=== PATIENT | female | born 1975 | race Caucasian/White ===

== ENCOUNTER 2016-03-08 14:15 | Emergency (ER) | payer OTHER ==
[~2016-03-08] VITALS: Wt 79.0 kg
[2016-03-08] MEDS ORDERED: BELLADONNA/PHENOBARBITAL TAB PO STA (15:06)
[2016-03-08] MEDS ORDERED: FAMOTIDINE 20 MG INJ IV STA (15:06)
[2016-03-08] MEDS ORDERED: LIDOCAINE/MYLANTA 40 ML BTL PO STA (15:06)
--- NOTE | 2016-03-08 15:10 | ERD ---
ER Documentation Chief Complaint Date/Time DATE: 03/08/16 TIME: 15:08 Chief Complaint ABD PAIN X2 DAYS, NO N/V/D HPI This is a 40-year-old female presents to the ER with epigastric pain that started yesterday. Epigastric pain is burning in quality it is nonradiating. It has been constant since yesterday. Patient has had several episodes of this in the past. Patient denies nausea vomiting or diarrhea. She denies any fevers or chills. ROS 12 point review of systems was done, all negative except per HPI. Allergies Allergies: Coded Allergies: No Known Allergy (Unverified , 03/08/16) PMhx/Soc Medical and Surgical Hx: pt denies Medical Hx, pt denies Surgical Hx Hx Alcohol Use: No Hx Substance Use: No Hx Tobacco Use: No Smoking Status: Never smoker Physical Exam Vitals Vital Signs Date Time Temp Pulse Resp B/P Pulse Ox O2 Delivery O2 Flow Rate FiO2 03/08/16 14:30 97.2 91 18 139/91 98 Physical Exam GENERAL: The patient is well developed and appropriate for usual state of health , in no apparent distress. HEENT: Atraumatic. CHEST: Clear to auscultation bilaterally. There are no rales, wheezes or rhonchi. HEART: Regular rate and rhythm. No murmurs, clicks, rubs or gallops. ABDOMEN: Soft, nontender and nondistended. Good bowel sounds. No rebound or guarding. No gross peritonitis. No gross organomegaly or masses. No Gomez sign or McBurney point tenderness. NEURO: Alert and oriented. SKIN: \The skin is warm and dry. Result Diagram: 03/08/16 1730 03/08/16 1730 Results 24 hrs Laboratory Tests Test 03/08/16 15:11 03/08/16 17:30 Urine Bacteria MANY Urine Bilirubin NEGATIVE Urine Clarity CLEAR Urine Color LT. YELLOW Urine Epithelial Cells FEW Urine Glucose NEGATIVE% Urine Hemoglobin TRACE Urine Ketones TRACE Urine Leukocyte Esterase TRACE Urine Microscopic RBC 2-5/HPF Urine Microscopic WBC 5-10/HPF Urine Nitrite NEGATIVE Urine Specific [place] >=1.030 Urine Total Protein TRACE Urine Urobilinogen 0.2 E.U./dL Urine pH 7.0 Alanine Aminotransferase (ALT/SGPT) 24IU/L Albumin 3.9g/dl Albumin/Globulin Ratio 1.11 Alkaline Phosphatase 87IU/L Anion Gap 15 Aspartate Amino Transf (AST/SGOT) 25IU/L Basophils # 0.010^3/ul Basophils % 0.2% Blood Morphology Comment Blood Urea Nitrogen 6mg/dl Calcium Level 9.1mg/dl Carbon Dioxide Level 27mmol/L Chloride Level 105mmol/L Creatinine 0.68mg/dl Direct Bilirubin 0.00mg/dl Eosinophils # 0.110^3/ul Eosinophils % 0.8% Globulin 3.50g/dl Glucose Level 92mg/dl Hematocrit 37.9% Hemoglobin 12.0g/dl Indirect Bilirubin 0.2mg/dl Lipase 1609U/L Lymphocytes # 1.510^3/ul Lymphocytes % 8.0% Mean Corpuscular Hemoglobin 26.1pg Mean Corpuscular Hemoglobin Concent 31.7g/dl Mean Corpuscular Volume 82.5fl Mean Platelet Volume 8.5fl Monocytes # 1.110^3/ul Monocytes % 5.9% Neutrophils # 15.810^3/ul Neutrophils % 85.1% Nucleated Red Blood Cells # 0.010^3/ul Nucleated Red Blood Cells % 0.0/100WBC Platelet Count 46567^3/UL Potassium Level 3.9mmol/L Red Blood Count 4.5910^6/ul Red Cell Distribution Width 17.3% Sodium Level 143mmol/L Total Bilirubin 0.2mg/dl Total Protein 7.4g/dl White Blood Count 18.510^3/ul Current Medications Medications (Trade) Dose Ordered Sig/Fany Route PRN Reason Start Time Stop Time Status Last Admin Dose Admin Famotidine (Pepcid Iv) 20 mg ONCE STAT IV 03/08/16 15:06 03/08/16 15:07 DC 03/08/16 15:18 Miscellaneous Medication (Gi Cocktail (2)) 40 ml ONCE STAT PO 03/08/16 15:06 03/08/16 15:07 DC 03/08/16 15:18 Belladonna/ Phenobarbital () 2 tab ONCE STAT PO 03/08/16 15:06 03/08/16 15:07 DC 03/08/16 15:18 Oxycodone/ Acetaminophen (Endocet (10/ 325)) 1 tab ONCE ONCE PO 03/08/16 16:30 03/08/16 16:30 DC Famotidine (Pepcid) 20 mg ONCE ONCE PO 03/08/16 16:30 03/08/16 16:33 DC 03/08/16 16:28 Acetaminophen/ Hydrocodone Bitart (Ferron ()) 1 tab ONCE ONCE PO 03/08/16 16:30 03/08/16 16:33 DC 03/08/16 16:35 Procedures/MDM Differential Diagnosis: GERD, gastritis, peptic ulcer disease, pancreatitis, cholecystitis, choledocholithiasis, biliary colic, cholangitis, [id number] , ACS/ND, Pnuemonia. Patient does have gallstones and her lipase is significantly elevated. Patient has pancreatitis secondary to cholelithiasis. Patient will be transferred over to ER 1 for further management and care. Departure Diagnosis: Primary Impression: Abdominal pain Additional Impression: Pancreatitis Condition: Stable BUNNY BRITTON Mar 08, 2016 15:10
[2016-03-08 15:44] LABS: ADD UMIC YES; URINE BILIRUBIN (Dip) NEGATIVE (NEGATIVE); URINE BLOOD (Dip) TRACE (NEGATIVE); URINE COLOR LT. YELLOW (YELLOW); URINE GLUCOSE (Dip) NEGATIVE (NEGATIVE); URINE KETONES (Dip) TRACE (NEGATIVE); URINE LEUKOCYTE ESTERASE (Dip) TRACE (NEGATIVE); URINE NITRITE (Dip) NEGATIVE (NEGATIVE); URINE TOTAL PROTEIN (Dip) TRACE (NEGATIVE); URINE UROBILINOGEN (Dip) 0.2 E.U./dL (0.1-1.0)
[2016-03-08 15:53] LABS: BACTERIA,URINE MANY
--- NOTE | 2016-03-08 16:01 | RADRPT ---
PROCEDURE: Abdominal ultrasound CLINICAL INDICATION: Abdominal pain TECHNIQUE: Starkey scale, color Doppler, and spectral Doppler ultrasound images of the right upper qu adrant. COMPARISON: None FINDINGS: Pancreas: Visualized portions appear of normal echogenicity, no focal lesions. Liver: Morphology: Normal in size and contour. Echogenicity: Normal. Focal lesions: None. Main portal vein: Patent with hepatopetal flow. Biliary System: Normal appearing gallbladder wall. No gallstones seen. No intra or extra-hepatic biliary dilatation. Common bile duct measures 6.0 mm in maximal dimension. Kidneys: Right 10.1 cm in length. Normal echogenicity. No hydronephrosis. No focal lesions or renal calculi. No free fluid identified. IMPRESSION: Cholelithiasis without evidence of abnormal gallbladder wall thickening to suggest cholecystitis. Normal caliber of the intrahepatic and extrahepatic biliary system. RPTAT: AADD .Jay Ahn MD, MD Date Time Electronically viewed and signed by .Jay Ahn MD, on 03/08/2016 16:01 .B/
[2016-03-08] MEDS ORDERED: HYDROCODONE/APAP (10/325) TAB PO ONE (16:30)
[2016-03-08] MEDS ORDERED: FAMOTIDINE 20 MG TAB PO ONE (16:30)
[2016-03-08] MEDS ORDERED: OXYCODONE/ACETAMINOPHEN (10/325) TAB PO ONE (16:30)
[2016-03-08 17:45] LABS: BASOPHILS % 0.2 % (0.0-2.0); EOSINOPHILS # 0.1 10^3/ul (0.0-0.5); EOSINOPHILS % 0.8 % (0.0-7.0); HEMATOCRIT 37.9 % (37.0-47.0); LYMPHOCYTES # 1.5 10^3/ul (0.8-2.9); MEAN CORPUSCULAR HEMOGLOBIN 26.1 pg (29.0-33.0); MEAN CORPUSCULAR HGB CONC 31.7 g/dl (32.0-37.0); MEAN CORPUSCULAR VOLUME 82.5 fl (82.0-101.0); MEAN PLATELET VOLUME 8.5 fl (7.4-10.4); MONOCYTE # 1.1 10^3/ul (0.3-0.9); MONOCYTES % 5.9 % (0.0-11.0); NEUTROPHIL # 15.8 10^3/ul (1.6-7.5); NEUTROPHILS % 85.1 % (39.0-77.0); PLATELET COUNT 372 10^3/UL (140-440); RED BLOOD COUNT 4.59 10^6/ul (4.20-5.40); RED CELL DISTRIBUTION WIDTH 17.3 % (11.5-14.5); UNCORRECTED WBC 18.5 10^3/ul (4.8-10.8); WHITE BLOOD COUNT 18.5 10^3/ul (4.8-10.8)
[2016-03-08 17:46] LABS: CONDITION 1; LH ANALYZER COMMENTS 1
[2016-03-08 17:56] LABS: ALBUMIN 3.9 g/dl (3.3-4.9)
[2016-03-08 17:57] LABS: POTASSIUM 3.9 mmol/L (3.5-5.1)
[2016-03-08 17:59] LABS: ALBUMIN/GLOBULIN RATIO 1.11; BILIRUBIN,INDIRECT 0.2 mg/dl (0-1.1); BILIRUBIN,TOTAL 0.2 mg/dl (0.2-1.3); CREATININE 0.68 mg/dl (0.44-1.00); TOTAL PROTEIN 7.4 g/dl (6.1-8.1)
[2016-03-08 18:00] LABS: CALCIUM 9.1 mg/dl (8.4-10.2)
[2016-03-08] MEDS ORDERED: PIPER-TAZO 3.375 GM IV (PMX) 100 ML IVPB ONE (18:30)
[2016-03-08] MEDS ORDERED: LIDOCAINE 1% (MDV) 20 ML INJ SC ONE (18:30)
[2016-03-08] MEDS ORDERED: SOD CHLORIDE 0.9% 1,000 ML IV ONE (18:30)
--- NOTE | 2016-03-08 18:56 | EN ---
Date/Time of Note Date/Time of Note DATE: 03/08/16 TIME: 18:53 ER Progress Note HPI: 40-year-old woman with 1 day of epigastric pain, nausea, and tactile fevers. She denies vomiting or diarrhea, no recent antibiotic use or recent travel. Workup today revealed cholelithiasis on ultrasound and lipase was severely elevated. Past medical history: None Physical exam: GENERAL: Well-developed, well-nourished, mild discomfort HEENT: Moist mucous membranes, pink conjunctiva, no cervical spine tenderness or step-off deformities, no goiter, no jaundice or icterus, extraocular movements intact without pain. No submandibular induration, and no pharyngeal erythema NEURO: Alert and oriented 3, cranial nerves II through XII intact bilaterally, pupils equal round reactive to light, no focal deficits or facial asymmetry, sensation intact distally Strength 5/5 in upper and lower extremities bilaterally CARDIAC: Regular rate and rhythm, no murmurs rubs or gallops LUNGS: Clear bilaterally no wheezing crackles or stridor ABDOMEN: Epigastric tenderness to touch with voluntary guarding, no rebound, no psoas sign no obturator sign. Normoactive bowel sounds SKIN: Warm and dry to touch, no abrasions, contusions, or hematomas, no lacerations, no ecchymosis, no target lesions, and without ulcers EXTREMITIES: No clubbing cyanosis or edema, calves are bilaterally symmetrical, no Homans sign, no popliteal cord sign. Distal pulses equal and bilateral PSYCH: Normal affect without agitation or irritability Medical decision making: We established small IV line and for further IV access I ordered PICC line placement. Labs reveal leukocytosis and lipase over 1800, and in the setting of cholelithiasis I suspect acute gallstone pancreatitis. I ordered IV fluids and opioid analgesics as well as Zosyn 3.375 g IV. Patient will be transferred to [facility] which is where her insurance is capitated to. Diagnostic impression: #1 acute gallstone pancreatitis MONICA MCLEAN MD Mar 08, 2016 18:56
== END 2016-03-08 19:52 | disposition left against medical advice (07) ==
LOC: FTE 14:15 → E/R 19:52
DX: R10.13 Epigastric pain (principal); K85.90 Acute pancreatitis without necrosis or infection, unspecified
CPT/HCPCS: 36415; 76705; 80053; 81001; 83690; 85025; 96374; J7030; Z7502; Z7610; 81003

== ENCOUNTER 2018-07-13 16:23 | Emergency (ER) | payer OTHER ==
[~2018-07-13] VITALS: Ht 167.6 cm; Wt 67.9 kg
[2018-07-13 16:30] VITALS: Ht 167.6 cm; Wt 67.9 kg
--- NOTE | 2018-07-13 17:08 | ERD ---
ER Documentation Chief Complaint Chief Complaint BILATERAL FLANK PAIN. DENIES DYSURIA. HPI 43-year-old female with history of meth use presents with complaint of bilateral flank pain on and off for the past month. States that the bilateral flank pain is been worse last 3 days. States that she occasionally takes meth, last intake was 2 days ago. Denies any dysuria, hematuria, brown-colored urine, fevers, chills. Denies any medical history including high blood pressure. Denies allergies. ROS All systems reviewed and are negative except as per history of present illness. Medications Home Meds Active Scripts Azithromycin* (Zithromax*) 250 Mg Tablet, 250 MG PO .ZPACK DIRECTED, #6 TAB TAKE 500 MG (2 TABS) THE FIRST DAY THEN 250 MG (1 TAB) DAYS 2-5 Prov:YASMIN PIPER 07/13/18 Allergies Allergies: Coded Allergies: No Known Allergy (Unverified , 03/08/16) PMhx/Soc Hx Alcohol Use: No Hx Substance Use: No Hx Tobacco Use: No FmHx Family History: No diabetes, No coronary disease, No other Physical Exam Vitals Vital Signs Date Temp Pulse Resp B/P (MAP) Pulse Ox O2 O2 Flow FiO2 Time Delivery Rate 07/13/18 97.5 97 16 132/66 100 16:30 (88) Physical Exam Const: No acute distress Head: Atraumatic Eyes: Normal Conjunctiva ENT: Normal External Ears, Nose and Mouth. Neck: Full range of motion. No meningismus. Resp: Clear to auscultation bilaterally Cardio: Regular rate and rhythm, no murmurs Abd: Soft, non tender, non distended. Normal bowel sounds Skin: No petechiae or rashes Back: No midline or flank tenderness Ext: No cyanosis, or edema Neur: Awake and alert Psych: Normal Mood and Affect Result Diagram: 07/13/18 1712 07/13/18 1712 Results 24 hrs Laboratory Tests Test 07/13/18 17:12 White Blood Count 14.7 10^3/ul Red Blood Count 5.04 10^6/ul Hemoglobin 12.8 g/dl Hematocrit 41.2 % Mean Corpuscular Volume 81.7 fl Mean Corpuscular Hemoglobin 25.4 pg Mean Corpuscular Hemoglobin Concent 31.1 g/dl Red Cell Distribution Width 17.5 % Platelet Count 393 10^3/UL Mean Platelet Volume 10.2 fl Immature Granulocytes % 0.400 % Neutrophils % 80.2 % Lymphocytes % 10.0 % Monocytes % 7.3 % Eosinophils % 1.8 % Basophils % 0.3 % Nucleated Red Blood Cells % 0.0 /100WBC Immature Granulocytes # 0.060 10^3/ul Neutrophils # 11.8 10^3/ul Lymphocytes # 1.5 10^3/ul Monocytes # 1.1 10^3/ul Eosinophils # 0.3 10^3/ul Basophils # 0.1 10^3/ul Nucleated Red Blood Cells # 0.0 10^3/ul Urine Color YELLOW Urine Clarity SLIGHTLY CLOUDY Urine pH 5.0 Urine Specific [place] 1.015 Urine Ketones 1+ mg/dL Urine Nitrite NEGATIVE mg/dL Urine Bilirubin NEGATIVE mg/dL Urine Urobilinogen NEGATIVE mg/dL Urine Leukocyte Esterase NEGATIVE [place]/ul Urine Microscopic RBC 6 /HPF Urine Microscopic WBC 3 /HPF Urine Squamous Epithelial Cells MODERATE /HPF Urine Bacteria FEW /HPF Urine Mucus MODERATE /HPF Urine Hemoglobin 1+ mg/dL Urine Glucose NEGATIVE mg/dL Urine Total Protein NEGATIVE mg/dl Urine Test NEGATIVE Sodium Level 142 mmol/L Potassium Level 3.8 mmol/L Chloride Level 105 mmol/L Carbon Dioxide Level 25 mmol/L Anion Gap 12 Blood Urea Nitrogen 6 mg/dl Creatinine 0.65 mg/dl Est Glomerular Filtrat Rate mL/min > 60 mL/min Glucose Level 100 mg/dl Calcium Level 9.4 mg/dl Total Bilirubin 0.3 mg/dl Direct Bilirubin 0.00 mg/dl Indirect Bilirubin 0.3 mg/dl Aspartate Amino Transf (AST/SGOT) 25 IU/L Alanine Aminotransferase (ALT/SGPT) 17 IU/L Alkaline Phosphatase 92 IU/L Creatine Kinase 118 IU/L Total Protein 8.4 g/dl Albumin 4.6 g/dl Globulin 3.80 g/dl Albumin/Globulin Ratio 1.21 Lipase 669 U/L Current Medications Medications Dose Sig/Fany Start Time Status Last (Trade) Ordered Route PRN Stop Time Admin Dose Reason Admin Sodium 1,000 ml @ Q1H STAT 07/13/18 DC 07/13/18 Chloride 1,000 mls/hr IV 21:04 21:49 07/13/18 22:03 IV Flush 10 ml STK-MED 07/13/18 DC 07/13/18 (NS 10 ml) ONCE .ROUTE 22: 22:40 07/13/18 22:22 Sodium 100 ml @ ud STK-MED 07/13/18 DC 07/13/18 Chloride ONCE .ROUTE : 22:41 07/13/18 22:22 Iohexol 150 ml STK-MED 07/13/18 DC 07/13/18 (Omnipaque ONCE .ROUTE 22: 22:41 300mg/ ml) 07/13/18 22:22 Iodixanol 100 ml STK-MED 07/13/18 DC (Visipaque ONCE .ROUTE 22:25 Locm) 07/13/18 22:26 Procedures/MDM DIAGNOSTIC IMAGING REPORT Patient: LILO POTTER : 1975 Age: 43 Sex: F MR #: [id number] DOS: 07/13/182056 Ordering MD: YASMIN PIPER Location: [facility] Room/Bed: PROCEDURE: US Abdomen Limited. CLINICAL INDICATION: Abdominal pain. TECHNIQUE: Multiple perez scale, color flow and Doppler ultrasound images were acquired of the patient's abdomen and retroperitoneum utilizing a high resolution transducer. COMPARISON: US ABDOMEN 03/08/2016 FINDINGS: Liver: Size: Normal. Echotexture: Normal. Lesions: None. Biliary: Gallbladder: Filled with a small to moderate amount of bile. Gallbladder wall: Normal. Common bile duct: Not well visualized. Pericholecystic fluid: None. Gallstones: Few echogenic, shadowing stones. The largest measuring up to 8 mm. Sludge: Small amount. Masses: None. Pancreas: Proximal portions: Not well visualized. Distal portions: Not well visualized. Right Kidney: Size: Normal. Echogenicity: Normal. Cysts: None. Hydronephrosis: None. Stones: None. Lesions: None Vascular: Portal vein: Antegrade flow. Other: Ascites: None. Pleural effusion: None visualized. Sonographic Gomez's Sign: Negative. IMPRESSION: Cholelithiasis. Common bile duct and pancreas not well visualized. If characterization of these structures is needed repeat exam or CT/MRI is recommended. RPTAT: AA .Richard Alvarado MD, Date Time Electronically viewed and signed by .Richard Alvarado MD, MD on 07/13/2018 22:03 .P/ CC: YASMIN PIPER [phone] DIAGNOSTIC IMAGING REPORT Patient: LILO POTTER : 1975 Age: 43 Sex: F MR #: [id number] DOS: 07/13/18 0000 Ordering MD: YASMIN PIPER Location: [facility] Room/Bed: PROCEDURE: CT Abdomen and pelvis with contrast. CLINICAL INDICATION: 43 year-old female flank pain, abdominal pain, h/o meth use, white count TECHNIQUE: Routine abdominopelvic CT following the administration of intravenous contrast. Coronal and sagittal reformats were provided. DICOM images are available. Contrast dose: 98 cc of Visipaque. Oral contrast was not administered. Radiation dose: CTDI (mGy): 8.44 mGy and DLP(mGy-cm): 461.87 mGy.cm One or more of the following dose reduction techniques were used: - Automated exposure control. - Adjustment of the mA and/or kV according to patient size. - Use of iterative reconstruction technique. COMPARISON: US ABDOMEN 07/13/2018. FINDINGS: Lower Thorax: Tree in bud nodules are identified and scattered throughout the visualized lung bases including the right lower lobe, lingula and right middle lobe. Mucous plugging is identified in the distal airways such as the dependent lower lobes. Liver: The liver is normal in overall morphology and enhancement. There is fo jovan low attenuation adjacent to the ligamentum teres in hepatic segment 4B. Biliary/gallbladder: Normal CT appearance of the gallbladder without calcified gallstones. No evidence of intra or extrahepatic biliary duct dilatation. Pancreas: Overall normal morphology and attenuation. No evidence of pe ripancreatic fluid or stranding. Stomach/Duodenum: The stomach is mostly collapsed, but grossly unremarkable. Spleen: Normal in size and morphology without focal lesion. Adrenals: No adrenal masses identified. Kidneys: Overall symmetric shape, size, and attenuation. A cortically based cyst is identified in the left upper pole of the kidney. Nonobstructing calculi are identified in the left mid kidney and lower pole. No evidence of obstructing urolithiasis or hydroureteronephrosis. Retroperitoneum: No evidence of aortic aneurysm. No evidence of retroperitoneal hemorrhage. Mesentery/Peritoneum: No evidence of free fluid or air. No mesenteric adenopathy identified. Hollow viscera:Allowing for variable degrees of distension, the CT appearance of the bowel loops are unremarkable. Appendix is normal. There is formed stool within the colonic loops. Pelvis/Reproductive organs: Asymmetric left adnexal cystic structure measuring 32 X 31 mm is identified. There is mild free fluid in the cul-de-sac. Musculoskeletal: There is transitional vertebra with sacralization of the transverse processes ankylosed to the adjacent sacral ala bilaterally. No osseous destructive lesions identified. IMPRESSION: Scattered tree in bud nodules and mucus plugging in the visualized lung bases including the lower lobes, lingula and right middle lobe. Findings are most indicative of airway infection or aspiration. Focal hepatosteatosis. Left nephrolithiasis. Normal appendix. Asymmetric left adnexal cystic structure measuring up to 32 mm. Dedicated pelvic ultrasound is recommended for better characterization. Mild free fluid in the cul-de-sac. Transitional vertebra with sacralized transverse processes and pseudarthrosis with the sacral alae bilaterally. Clinical correlation for Bertolotti's syndrome is recommended. RPTAT: EE Physician Mann Date Time Electronically viewed and signed by Physician Mann on 07/13/2018 23:22 BP/ CC: YASMIN PIPER [phone] MDM: Given patient's complaint of flank pain along with a history of recent meth use there is some concern for possible rhabdomyolysis however this dwas not indicated on the blood work or urinalysis. CT with contrast was ordered due to patient's history as well as white count and elevated lipase and the fact that the norm normal gallbladder ultrasound did not explain the findings on exam or labs. CT did show infection of the lungs the patient will be treated for pneumonia with azithromycin. I discussed the elevated lipase with my supervising physician and he said that unless it is 3 times elevated there is no concern for acute pancreatitis. I have low suspicion for rhabdomyolysis, pyelonephritis, intra-abdominal abscess, appendicitis, cholecystitis, or any other emergent condition. Patient discharged with strict ER precautions. Patient advised to follow up with PMD. All questions answered at discharge. Departure Diagnosis: Primary Impression: Flank pain Additional Impression: Pneumonia Pneumonia type: due to unspecified organism Laterality: unspecified laterality Lung location: unspecified part of lung Qualified Codes: J18.9 - Pneumonia, unspecified organism Condition: Stable YASMIN PIPER July 13, 2018 17:08
[2018-07-13] MEDS ORDERED: SOD CHLORIDE 0.9% 1,000 ML IV STA (21:04)
[2018-07-13] MEDS ORDERED: IOHEXOL 300MG/ML 150 ML BTL ONE (22:21)
[2018-07-13] MEDS ORDERED: SOD CHLORIDE 0.9% 100 ML ONE (22:21)
[2018-07-13] MEDS ORDERED: IODIXANOL LOCM 100 ML BTL ONE (22:25)
[2018-07-13] MEDS ORDERED: AZIT250T PO (23:38)
[2018-07-13 23:59] VITALS: BP 120/85; PULSE 88; RESP 20
== END 2018-07-14 | disposition home or self-care (01) ==
LOC: FTE 16:23
DX: R10.9 Unspecified abdominal pain (principal); J18.9 Pneumonia, unspecified organism
CPT/HCPCS: 74177; 76705; 80053; 81001; 82550; 83690; 84703; 85025; J7030; Q9967; Z7610

== ENCOUNTER 2018-12-08 23:01 | Emergency (ER) | payer OTHER ==
[~2018-12-08] VITALS: Ht 167.6 cm; Wt 69.1 kg
[~2018-12-08 23:01] MED LIST: AZIT250T PO; CEPH-443 PO; PHEN-537 PO
[2018-12-08 23:06] VITALS: Ht 167.6 cm; Wt 69.1 kg
[2018-12-09 02:27] VITALS: BP 112/69; PULSE 98; RESP 18
== END 2018-12-09 02:26 | disposition home or self-care (01) ==
LOC: FTE 23:01
DX: N39.0 Urinary tract infection, site not specified (principal)
CPT/HCPCS: 81003; 81025; Z7502; 99283